=== PATIENT | female | born 1965 | race Caucasian/White ===

== ENCOUNTER → 2017-04-26 | Outpatient (CLI) | payer SELFPAY ==
--- NOTE | 2017-04-26 09:52 | Diagnostic Imaging Report ---
PROCEDURE: US Abdomen, limited. TECHNIQUE: Multiple realtime grayscale images were obtained over the abdomen in various projections. INDICATION: Palpable abnormality in the left anterior abdominal wall. COMPARISON: None available. FINDINGS: In the area of palpable concern, there appears to be a defect in the left rectus abdominis muscle with peritoneal contents herniating through the defect. This defect measures approximately 2 cm in diameter. It is difficult to ascertain if this is simply peritoneal fat versus bowel loops. IMPRESSION: There is likely a paramedian ventral hernia in the left lower quadrant. CT of the abdomen and pelvis without contrast is advised for better characterization of the contents. Dictated by: Dictated on workstation # [id number]
== END ==
LOC: RAD 07:10
PROVIDERS: ATTEND Nurse Practitioner Family
DX: K43.9 Ventral hernia without obstruction or gangrene (principal)
CPT/HCPCS: 76705

== ENCOUNTER → 2017-05-03 | Outpatient (CLI) | payer SELFPAY ==
--- NOTE | 2017-05-03 11:59 | Diagnostic Imaging Report ---
PROCEDURE: CT abdomen and pelvis without contrast. TECHNIQUE: Multiple contiguous axial images were obtained through the abdomen and pelvis without the use of intravenous contrast. INDICATION: Abdominal distention. COMPARISON: None. FINDINGS: Included portions of the lung bases are unremarkable. CT abdomen: There is a large heterogeneous mass extending from the pelvis into the abdomen. It measures approximately 16 x 11 cm in maximal axial dimension x approximately 18.6 cm in length. Note is made of prominent partially calcified mural component on the left. As a result, there is mass effect with displacement of the intra-abdominal organs. There is no evidence of underlying bowel obstruction. Normal appendix is identified. The kidneys, adrenal glands, spleen, and pancreas have an unremarkable noncontrast CT appearance. The liver has a somewhat slightly diffusely hypodense appearance suggestive of underlying hepatic steatosis. No focal hepatic mass-type lesions are seen on this noncontrast exam. There is no loculated fluid collection, free fluid, nor free air within the abdomen. No abnormal mesenteric or retroperitoneal adenopathy is seen. There is mild calcified aortic atherosclerosis. Fat-containing left paramedian ventral hernia is seen just inferior to the level of the umbilicus. Ostia measures approximately 2 cm in diameter. Bony structures show no acute abnormalities. CT pelvis: Urinary bladder is unopacified. No calculi are seen within the urinary bladder. Again, there is a large heterogeneous mass extending from the pelvis into the abdomen. There is no loculated fluid collection, free fluid, nor free air within the pelvis. No abnormal lymph nodes are identified. Bony structures show no acute abnormalities. IMPRESSION: 1. Large mass extending from the pelvis into the lower abdomen. Ovarian origin is favored. Given the bulky calcifications, findings could be on the basis of large dermoid. Surgical consultation recommended. 2. Fat-containing periumbilical hernia. 3. Probable hepatic steatosis. Dictated by: Dictated on workstation # [id number]
== END ==
LOC: RAD 11:00
PROVIDERS: ATTEND Nurse Practitioner Family
DX: K42.9 Umbilical hernia without obstruction or gangrene (principal); K43.9 Ventral hernia without obstruction or gangrene; R19.09 Other intra-abdominal and pelvic swelling, mass and lump
CPT/HCPCS: 74176

== ENCOUNTER 2017-05-25 05:47 | Outpatient (CLI) | payer SELFPAY ==
[~2017-05-25] VITALS: Ht 157.5 cm; Wt 55.0 kg
[2017-05-25] MEDS ORDERED: TELM1TAB2 PO (13:39)
== END 2017-05-25 14:54 ==
LOC: PREOP 05:47
PROVIDERS: ATTEND Obstetrics & Gynecology
DX: Z01.818 Encounter for other preprocedural examination (principal); R19.09 Other intra-abdominal and pelvic swelling, mass and lump; K43.9 Ventral hernia without obstruction or gangrene

== ENCOUNTER → 2017-05-25 | Outpatient (CLI) | payer OTHER ==
[~2017-05-25] MED LIST: TELM1TAB2 PO
--- NOTE | 2017-05-25 18:27 | Diagnostic Imaging Report ---
INDICATION: Abnormal CT imaging obtained for abdominal distention demonstrating a large pelvic mass. TECHNIQUE: Multiple real-time grayscale sonographic images were obtained of the pelvis transabdominally and transvaginally. CORRELATION STUDY: CT 05/03/2017. FINDINGS: UTERUS/ENDOMETRIUM: Uterus measures 6.0 x 4.2 x 2.5 cm. Endometrial thickness is thickened for a postmenopausal patient at 9 mm. Somewhat heterogeneous appearance about the thickened endometrium. RIGHT OVARY: 1.3 x 1.3 x 2.1 cm, generally unremarkable. LEFT OVARY: Definitive left ovary not visualized.. There is a large complex mass in the midline of the pelvis extending to left of midline. This measures approximately 23 x 13 x 18 cm. No detectable color flow within the more solid component. No significant free pelvic fluid. IMPRESSION: 1. Abnormally thickened endometrium for a postmenopausal patient does raise concern for potential endometrial malignancy. 2. Large 23 cm complex mass again demonstrated within the pelvis. Though somewhat indeterminate, it favors ovarian etiology concerning for potential cystadenocarcinoma or given the calcification could be reflective of a large dermoid type tumor. Dictated by: Dictated on workstation # [id number]
== END ==
LOC: RAD 10:11
PROVIDERS: ATTEND Obstetrics & Gynecology
DX: N85.8 Other specified noninflammatory disorders of uterus (principal); Z32.01 Encounter for pregnancy test, result positive
CPT/HCPCS: 36415; 76830; 76856; 84702

== ENCOUNTER 2017-05-27 08:51 | Inpatient (IN) | payer OTHER ==
[~2017-05-27] VITALS: Ht 157.5 cm; Wt 55.0 kg
--- OUTSIDE RECORDS SUMMARY | 2017-05-27 08:57 | XMS REPORT ---
Author Author GEORGE MELGAR [facility] Address [address] [place] [address] Care Team Providers Care Medical Tech Name Role Phone GEORGE MELGAR Unavailable PROBLEMS Type Condition ICD9-CM Code GGS52-DR Code Onset Dates Condition Status SNOMED Code Problem Colon cancer screening Z12.11 Active 474503081 Problem Breast cancer screening Z12.39 Active 513709522 Problem Gynecologic exam normal Z01.419 Active 932354774 Problem Essential hypertension I10 Active 66322301 ALLERGIES No Information SOCIAL HISTORY Never Assessed PLAN OF CARE VITAL SIGNS MEDICATIONS Unknown Medications RESULTS No Results PROCEDURES No Known procedures IMMUNIZATIONS No Known Immunizations MEDICAL (GENERAL) HISTORY Type Description Date Medical History hypertension Surgical History tubal ligation Hospitalization History childbirth only
--- OUTSIDE RECORDS SUMMARY | 2017-05-27 08:58 | XMS REPORT ---
Author Author GEORGE MELGAR [facility] Address [address] [place] [address] Care Team Providers Care Commercial Manager Name Role Phone GEORGE MELGAR Unavailable PROBLEMS Type Condition ICD9-CM Code ZPI36-LY Code Onset Dates Condition Status SNOMED Code Problem Colon cancer screening Z12.11 Active 268121558 Problem Breast cancer screening Z12.39 Active 696868844 Problem Gynecologic exam normal Z01.419 Active 380149417 Problem Essential hypertension I10 Active 00237984 ALLERGIES No Information SOCIAL HISTORY Never Assessed PLAN OF CARE VITAL SIGNS MEDICATIONS Medication Instructions Dosage Frequency Start Date End Date Duration Status Micardis HCT 40-12.5 mg Orally Once a day 1 tablet 24h 0 days Active RESULTS No Results PROCEDURES No Known procedures IMMUNIZATIONS No Known Immunizations MEDICAL (GENERAL) HISTORY Type Description Date Medical History hypertension Surgical History tubal ligation Hospitalization History childbirth only
--- OUTSIDE RECORDS SUMMARY | 2017-05-27 08:58 | XMS REPORT ---
Author Author GEORGE MELGAR [facility] Address [address] [place] [address] Care Team Providers Care Edging Machine Setter Name Role Phone GEORGE MELGAR Unavailable PROBLEMS Type Condition ICD9-CM Code DET16-BK Code Onset Dates Condition Status SNOMED Code Problem Colon cancer screening Z12.11 Active 554411798 Problem Breast cancer screening Z12.39 Active 160055871 Problem Gynecologic exam normal Z01.419 Active 617892532 Problem Essential hypertension I10 Active 65764766 ALLERGIES No Information SOCIAL HISTORY Never Assessed PLAN OF CARE VITAL SIGNS MEDICATIONS Unknown Medications RESULTS No Results PROCEDURES No Known procedures IMMUNIZATIONS No Known Immunizations MEDICAL (GENERAL) HISTORY Type Description Date Medical History hypertension Surgical History tubal ligation Hospitalization History childbirth only
--- OUTSIDE RECORDS SUMMARY | 2017-05-27 08:58 | XMS REPORT ---
Author Author KINJAL BRUNER [facility] Address [address] [place] [address] Care Team Providers Care Flatbed Truck Driver Name Role Phone KINJAL BRUNER Unavailable PROBLEMS Type Condition ICD9-CM Code FRG29-WW Code Onset Dates Condition Status SNOMED Code Problem Colon cancer screening Z12.11 Active 230404786 Problem Breast cancer screening Z12.39 Active 476405358 Problem Gynecologic exam normal Z01.419 Active 479002732 Problem Essential hypertension I10 Active 47759301 ALLERGIES Unknown Allergies SOCIAL HISTORY No smoking Hx information available PLAN OF CARE VITAL SIGNS MEDICATIONS Unknown Medications RESULTS No Results PROCEDURES Procedure Date Ordered Related Diagnosis Body Site FLUARIX QUAD P-FREE 3 AND UP .50 2015Apr 13, 2016 SINGLE IMMUNIZATION ADMIN Apr 13, 2016 IMMUNIZATIONS Vaccine Route Administration Date Status FLUARIX QUAD P-FREE 3 AND UP .50 2015 IM Intramuscular Apr 13, 2016 Administered
--- OUTSIDE RECORDS SUMMARY | 2017-05-27 08:58 | XMS REPORT ---
Author Author GEORGE MELGAR [facility] Address [address] [place] [address] Care Team Providers Care Pearler Name Role Phone GEORGE MELGAR Unavailable PROBLEMS Type Condition ICD9-CM Code TIE01-RE Code Onset Dates Condition Status SNOMED Code Problem Colon cancer screening Z12.11 Active 065172673 Problem Breast cancer screening Z12.39 Active 706851212 Problem Gynecologic exam normal Z01.419 Active 711531824 Problem Essential hypertension I10 Active 84011310 ALLERGIES No Information SOCIAL HISTORY Never Assessed PLAN OF CARE VITAL SIGNS MEDICATIONS Unknown Medications RESULTS No Results PROCEDURES No Known procedures IMMUNIZATIONS No Known Immunizations MEDICAL (GENERAL) HISTORY Type Description Date Medical History hypertension Surgical History tubal ligation Hospitalization History childbirth only
--- OUTSIDE RECORDS SUMMARY | 2017-05-27 08:58 | XMS REPORT ---
Author Author MART PALACIOS [facility] Address Unknown Phone Unavailable Care Team Providers Care Velocity Shooter Name Role Phone MART PALACIOS CP Unavailable Allergies No Known Allergies Problems Problem Type Condition Code Onset Dates Condition Status Assessment Encounter for other administrative examinations Z02.89 Active Problem Essential hypertension I10 Active Medications No Known Medications Procedures Procedure Coding System Code Date Dental Prepay for Future Services CPT-4 DTPRP June 05, 2015 Results No Known Results Summary Purpose eClinicalWorks Submission
[2017-05-27] MEDS ORDERED: LACTATED RINGERS 1,000 ML IV PRN (09:05)
[2017-05-27] MEDS ORDERED: metroNIDAZOLE 500MG/100ML IVPB 100 ML IV ONE (09:15)
[2017-05-27] MEDS ORDERED: ceFAZolin INJECTION 1,000 MG in NS (IVPB) 100 ML IV ONE (09:15)
[2017-05-27 09:28] VITALS: BP 135/93
[2017-05-27 09:39] LABS: BASOPHILS # (AUTO) 0.1 10^3/uL (0.0-0.1); BASOPHILS % (AUTO) 1 % (0-10); EOSINOPHILS # (AUTO) 0.1 10^3/uL (0.0-0.3); EOSINOPHILS % (AUTO) 1 % (0-10); HEMATOCRIT 52 % (35-52); HEMOGLOBIN 18.6 G/DL (11.5-16.0); LYMPHOCYTES # (AUTO) 2.5 X 10^3 (1.0-4.0); LYMPHOCYTES % (AUTO) 26 % (12-44); MEAN CORPUSCULAR HEMOGLOBIN 35 PG (25-34); MEAN CORPUSCULAR HGB CONC 36 G/DL (32-36); MEAN CORPUSCULAR VOLUME 96 FL (80-99); MEAN PLATELET VOLUME 9.6 FL (7.4-10.4); MONOCYTES # (AUTO) 0.8 X 10^3 (0.0-1.0); MONOCYTES % (AUTO) 8 % (0-12); NEUTROPHILS # (AUTO) 6.3 X 10^3 (1.8-7.8); NEUTROPHILS % (AUTO) 65 % (42-75); PLATELET COUNT 294 10^3/uL (130-400); RED BLOOD COUNT 5.39 10^6/uL (4.35-5.85); RED CELL DISTRIBUTION WIDTH 12.7 % (10.0-14.5); WHITE BLOOD COUNT 9.8 10^3/uL (4.3-11.0)
[2017-05-27 09:57] LABS: ALANINE AMINOTRANSFERASE 19 U/L (0-55); ALBUMIN 4.5 GM/DL (3.2-4.5); ALKALINE PHOSPHATASE 154 U/L (40-136); BILIRUBIN,TOTAL 0.6 MG/DL (0.1-1.0); BUN/CREATININE RATIO 16; CALCIUM 9.5 MG/DL (8.5-10.1); CARBON DIOXIDE 23 MMOL/L (21-32); CHLORIDE 100 MMOL/L (98-107); GFR ESTIMATED > 60; GLUCOSE 79 MG/DL (70-105); POTASSIUM 3.7 MMOL/L (3.6-5.0); SODIUM 135 MMOL/L (135-145)
--- NOTE | 2017-05-27 10:32 | Progress Note-Pre Operative ---
Pre-Operative Progress Note H&P Reviewed The H&P was reviewed, patient examined and no changes noted. Date Seen by Provider: May 27, 2017 Time Seen by Provider: 10:15 Date H&P Reviewed: May 27, 2017 Time H&P Reviewed: 10:15 Pre-Operative Diagnosis: Pelvic Mass, Ventral Hernia APRIL PASCUAL DO May 27, 2017 10:32 am
[2017-05-27] MEDS ORDERED: SEVOFLURANE (ULTANE) 15 ML INHAL SOLN ONE (10:34)
[2017-05-27] MEDS ORDERED: fentaNYL INJECTION 250 MCG/5 ML AMP ONE (10:34)
[2017-05-27] MEDS ORDERED: proPOfol 200 MG/20 ML (DIPRIVAN) VIAL IV ONE (10:34)
[2017-05-27] MEDS ORDERED: LIDOCAINE PF 2% 5 ML (XYLOCAINE) VIAL ONE (10:34)
[2017-05-27] MEDS ORDERED: DEXAMETHASONE 10 MG/ML (DECADRON) 1 ML VIAL ONE (10:34)
[2017-05-27] MEDS ORDERED: ROCURONIUM 10 MG/ML 5 ML SYRINGE IV ONE (10:34)
[2017-05-27] MEDS ORDERED: MIDAZOLAM 2 MG/2 ML (VERSED) VIAL ONE (10:34)
[2017-05-27] MEDS ORDERED: HYDROmorphone PF INJECTION 20 MG in NS (IVPB) 100 ML IV PRN (10:45)
[2017-05-27] MEDS ORDERED: ONDANSETRON 4 MG/2 ML (SDV) Z0FRAN IVP PRN ×2 (10:45→12:30)
[2017-05-27] MEDS ORDERED: NEOSTIGMINE 1 MG/ML 5 ML SYRINGE ONE (12:00)
[2017-05-27] MEDS ORDERED: GLYCOPYRROLATE 0.2 MG/ML (ROBINUL) 2 ML VIAL ONE (12:00)
[2017-05-27] MEDS ORDERED: HYDROmorphone (DILAUDID) 2 MG/ML VIAL ONE (12:21)
[2017-05-27] MEDS ORDERED: morphine INJ 10 MG/ML 1ML (SYR OR VIAL) ONE (12:22)
[2017-05-27] MEDS ORDERED: morphine INJ 10 MG/ML 1ML (SYR OR VIAL) IVP PRN (12:30)
[2017-05-27] MEDS: HYDROmorphone (DILAUDID) 2 MG/ML VIAL IVP PRN ×2 (12:44→13:08)
[2017-05-27] MEDS ORDERED: LABETALOL HCL 20 MG/4 ML VIAL ONE (12:51)
[2017-05-27] MEDS ORDERED: LABETALOL HCL 20 MG/4 ML VIAL IV ONE (13:00)
[2017-05-27] MEDS: KETOROLAC 30 MG/ML VIAL IVP PRN ×2 (13:04→19:37)
[2017-05-27 13:50] VITALS: BP 175/115
[2017-05-27] MEDS: D5 LR IV SOLUTION 1,000 ML IV SCH ×2 (13:50→22:34)
--- NOTE | 2017-05-27 14:16 | Anesthesia-General Post-Op ---
General Patient Condition Mental Status/LOC: Same as Preop Cardiovascular: Satisfactory Nausea/Vomiting: Absent Respiratory: Satisfactory Pain: Controlled Complications: Absent Post Op Complications Complications None Follow Up Care/Instructions Patient Instructions None needed. Anesthesia/Patient Condition Patient Condition Patient is doing well, no complaints, stable vital signs, no apparent adverse anesthesia problems. No complications reported per nursing. KAYLIE DANIEL CRNA May 27, 2017 14:16
[2017-05-27] MEDS ORDERED: hydrALAZINE (APESOLINE) 20 MG/ML VIAL IV PRN (14:45)
[2017-05-27] MEDS ORDERED: PATIENT MAY USE OWN MEDS, ALL MC SCH (14:45)
[2017-05-27] MEDS: HYDROCHLOROTHIAZIDE PO SCH (15:13)
[2017-05-27] MEDS: TELMISARTAN PO SCH (15:13)
[2017-05-27 15:41] VITALS: BP 157/106
--- NOTE | 2017-05-27 18:29 | OPERATIVE REPORT ---
DATE OF SERVICE: PREOPERATIVE DIAGNOSES: 1. A 51-year-old female with pelvic mass. 2. Abdominal ventral hernia. POSTOPERATIVE DIAGNOSES: 1. A 51-year-old female with pelvic mass. 2. Abdominal ventral hernia. PROCEDURES: 1. Exploratory laparotomy with removal of left ovarian mass. 2. Total abdominal hysterectomy with bilateral salpingo-oophorectomy. 3. Incarcerated ventral hernia repair performed by Dr. Lopez. SURGEON: Sanchez Pascual DO [employer]-SURGEON: Rivera Lopez DO ANESTHESIA: General endotracheal. ESTIMATED BLOOD LOSS: 150 mL. URINE OUTPUT: 200 mL, clear at the end of the procedure. FLUIDS: 1700 mL of lactated Ringer's solution. FINDINGS: An enlarged pelvic mass about the size of a volleyball, grossly normal-appearing uterus and right ovary and an incarcerated ventral hernia. SPECIMENS SENT: Left ovarian pelvic mass, uterus, bilateral fallopian tubes and right ovary. INDICATION FOR PROCEDURE: This 51-year-old female came into my office as a consultation from the [facility] with an obvious large pelvic mass making the patient look as though she was approximately 20 to 25 weeks . Upon review of her records, she did have a CT revealing an in largest diameter 12 to 14 cm pelvic mass with unsure etiology of left or right adnexa. Followup ultrasound was ordered which revealed the same with some cystic and solid components noted within it. Tumor markers were found to be negative. There is no lymphadenopathy on CT. No free fluid in the pelvis. I discussed with the patient the possibility for malignancy and possible staging needed; however, at this point, there were no signs of malignancy. We decided to proceed with this case here without staging. I also consulted Dr. Lopez to come in and repair this hernia that was periumbilical from previous surgery. Risks of the procedure were discussed with the patient in detail including risks of bleeding, infection, damage to any surrounding structures including, but not limited to bowel, bladder, ureter, kidneys, risks of damaging any other structures and subsequent surgeries were discussed with the patient, postoperative thromboembolic events, postoperative hematoma formation and even . After everything was discussed with the patient in detail, consent was obtained and the patient was taken to the operating room. OPERATIVE REPORT IN DETAIL: Once in the operating room, general anesthesia was found to be adequate. She was placed in dorsal lithotomy position, prepped and draped in normal sterile fashion. Fried catheter was placed using sterile technique and a timeout was performed. I then placed a weighted speculum into the patient's vagina. A right angle retractor was used to visualize the cervix. It was grasped at 12 o'clock position using a single tooth tenaculum. An 0 Vicryl suture was then placed for retraction. The single tooth tenaculum was then removed. I then placed a Lena uterine manipulator with a 6 cm tip and a 3 cm colpotomy ring into the endometrial canal deploying the balloon in the endometrium and advancing the colpotomy ring around the vaginal fornix. Once this was in place, I was able to perform a change of gloves and took my attention to the abdomen where I made a midline incision from the left of the umbilicus down to the suprapubic bone. I then took this incision to the fascia using Bovie cautery and I was able to separate the rectus muscles at midline, exposed the peritoneum which I entered bluntly and extended with blunt traction. I then placed an Santiago ring retractor into the pelvis, which allowed me to easily deliver this large pelvic mass. At the vascular pedicle, I took LigaSure across this portion of the tumor and cauterized and transected using the LigaSure and it was sent as a separate left ovarian pelvic mass. The hysterectomy was then performed by starting at the right infundibulopelvic ligament. I bipolar cauterized and transected this using the LigaSure. I took this down to the level of the lower uterine segment, at which point I the anterior and posterior leaflets of the broad ligament. The anterior leaflet was taken around the anterior vaginal fornix and posterior leaflet was taken around the posterior vaginal fornix. On the left side from the previous removal of the pelvic mass, I took this both anteriorly and posteriorly as well with these reflections of the broad ligament and I was able to skeletonize the uterine vessels laterally, which were bipolar cauterized bilaterally and transected using the LigaSure. I then performed my colpotomy at 12 o'clock position and able to easily palpate the Lena colpotomy ring and took this circumferentially around the vaginal fornix amputating the specimen and then removing the uterus and right tube and ovary sent as a separate specimen. The vaginal cuff was then closed using 0 Vicryl suture in a [id number] fashion interrupted across the vaginal cuff, after which there was no active bleeding noted from any of my dissection planes. I copiously irrigated the pelvis using normal saline. Once again, no active bleeding was noted from any of my dissection planes. The case was then turned over to Dr. Lopez, who was able to remove the hernia and able to align the fascia for closure. We then proceeded with closing the fascia in one layer using #1 looped PDS in running fashion. Once this was done, we reapproximated the skin using gabriela. Lap and sponge counts were correct at the end of the procedure. Instrument counts were correct as well. Fried catheter was left in place. The patient tolerated the procedure well and was sent to recovery area in stable condition. Ancef 2 g and 500 mg of Flagyl were given preoperatively for infection prophylaxis. Job ID: [id number] DocumentID: [id number] Dictated Date: 05/27/2017 13:36:07 Junior Java Developer Date: 05/27/2017 18:29:16 Dictated By: SANCHEZ PASCUAL DO
[2017-05-27 18:33] VITALS: BP 142/96
[2017-05-27 22:15] VITALS: BP 137/92
[2017-05-28] VITALS (7 sets, daily range): BP systolic 135–153; BP diastolic 90–96
[2017-05-28] MEDS: IBUPROFEN 600 MG (MOTRIN) TAB PO SCH (01:12)
[2017-05-28] MEDS: D5 LR IV SOLUTION 1,000 ML IV SCH ×2 (02:32→08:10)
--- NOTE | 2017-05-28 06:41 | OPERATIVE REPORT ---
DATE OF SERVICE: 05/27/2017 PREOPERATIVE DIAGNOSIS: Pelvic mass, abdominal incisional incarceration hernia. POSTOPERATIVE DIAGNOSIS: Pelvic mass, abdominal incisional incarceration hernia. PROCEDURES: Incarcerated ventral hernia repair and I assisted with exploratory laparotomy with removal of left ovarian mass, total abdominal hysterectomy with bilateral salpingo-oophorectomy performed by Dr. Arango. SURGEONS: 1. Eloise Lopez DO 2. Sanchez Arango MD ANESTHESIA: General. ESTIMATED BLOOD LOSS: 150 mL. COMPLICATIONS: None. INDICATIONS: The patient is a 51-year-old female who has had hernias and is having a tubal ligation for about 12 to 13 years. She also has a large pelvic mass. She has been explained the risks and benefits of procedure and wished to proceed with the procedure. Consent was on chart. DESCRIPTION OF PROCEDURE: The patient was positioned in lithotomy position, prepped and draped in a sterile fashion. A midline incision was made and the hernia contents were encountered. This was omental fat that was incarcerated through hernia. The hernia defect was opened through the incision and the abdomen was then entered. All the contents were reduced. At this point, Dr. Arango performed removal of the left ovarian mass and a total abdominal hysterectomy with bilateral salpingo-oophorectomy. Hernia sac that was just inferior to the umbilicus was removed. The fascia was mobilized and the fascia was then closed with 1-0 looped PDS. There is a small laxity in the fascia, therefore, 0 Vicryl suture was placed to help reinforce this area. The fascia was then closed remainder of the way. The skin was then mobilized and the skin was then reapproximated with gabriela. The patient tolerated the procedure well. She is in recovery room in stable condition. The patient understands this was a primary repair and does have higher risk of recurrence. Job ID: [id number] DocumentID: [id number] Dictated Date: 05/27/2017 21:21:07 Division Human Resources Manager Date: 05/27/2017 23:00:01 Dictated By: ELOISE LOPEZ DO
[2017-05-28] MEDS: KETOROLAC 30 MG/ML VIAL IVP PRN ×3 (06:53→20:28)
--- NOTE | 2017-05-28 09:11 | Progress Note ---
Subjective Date Seen by Provider: May 28, 2017 Time Seen by Provider: 09:06 Subjective/Events-last exam Had some nausea and emesis last night, currently better. Using incentive spirometer. Pain controlled. Denies n/v fever sweats chills shortness of breath or chest pain. Objective Exam Vital Signs Date Time Temp Pulse Resp B/P (MAP) Pulse Ox O2 Delivery O2 Flow Rate FiO2 05/28/17 08:04 98.5 97 18 149/96 (113) 95 Room Air 05/28/17 06:51 18 05/28/17 03:59 97.9 99 18 142/90 (107) 93 Room Air 05/28/17 01:12 97.0 108 18 153/96 (115) 92 Room Air 05/27/17 22:15 97.0 99 18 137/92 (107) 91 Room Air 05/27/17 19:30 91 Room Air 05/27/17 19:00 18 05/27/17 19:00 18 05/27/17 18:33 97.6 105 18 142/96 (111) 93 Nasal Cannula 2.00 05/27/17 16:06 Nasal Cannula 2.00 05/27/17 15:41 96.9 69 18 157/106 (123) 96 Nasal Cannula 2.00 05/27/17 15:15 20 05/27/17 13:50 96.9 67 20 175/115 (135) 98 Nasal Cannula 2.00 05/27/17 09:28 97.8 104 16 135/93 (107) 99 Room Air I & O 05/28/17 07:00 Intake Total 3240 ml Output Total 1400 ml Balance 1840 ml Capillary Refill : General Appearance: No Apparent Distress HEENT: PERRL/EOMI Neck: Normal Inspection Respiratory: No Accessory Muscle Use, No Respiratory Distress Cardiovascular: Regular Rate, Rhythm Gastrointestinal: soft (incisional tenderness, no signs of infection) Extremity: Normal Inspection, Normal Range of Motion Neurologic/Psychiatric: Alert, Oriented x3, No Motor/Sensory Deficits, social work administrator II- XII Norm as Tested Skin: Warm/Dry Lymphatic: No Adenopathy Results Lab Laboratory Tests 05/27/17 09:16: White Blood Count 9.8, Red Blood Count 5.39, Hemoglobin 18.6H, Hematocrit 52, Mean Corpuscular Volume 96, Mean Corpuscular Hemoglobin 35H, Mean Corpuscular Hemoglobin Concent 36, Red Cell Distribution Width 12.7, Platelet Count 294, Mean Platelet Volume 9.6, Neutrophils (%) (Auto) 65, Lymphocytes (%) (Auto) 26, Monocytes (%) (Auto) 8, Eosinophils (%) (Auto) 1, Basophils (%) (Auto) 1, Neutrophils # (Auto) 6.3, Lymphocytes # (Auto) 2.5, Monocytes # (Auto) 0.8, Eosinophils # (Auto) 0.1, Basophils # (Auto) 0.1, Sodium Level 135, Potassium Level 3.7, Chloride Level 100, Carbon Dioxide Level 23, Anion Gap 12, Blood Urea Nitrogen 13, Creatinine 0.80, Estimat Glomerular Filtration Rate > 60, BUN/ Creatinine Ratio 16, Glucose Level 79, Calcium Level 9.5, Total Bilirubin 0.6, Aspartate Amino Transf (AST/SGOT) 25, Alanine Aminotransferase (ALT/SGPT) 19, Alkaline Phosphatase 154H, Total Protein 8.0, Albumin 4.5 Assessment/Plan Assessment/Plan Assessment/Plan s/p total hysterectomy b/l salpingo-oophorectomy and primary repair incarcerated incisional hernia pain control diet as tolerates incentive spirometry ambulate ELOISE BECERRIL DO May 28, 2017 09:11
--- NOTE | 2017-05-28 09:32 | Progress Note-Standard ---
Standard Progress Note Progress Notes/Assess & Plan Date Seen by Provider: May 28, 2017 Time Seen by Provider: 09:29 Progress/Assessment & Plan Patient doing well other than nausea and vomitting x 2 this AM. Reports that her pain is well controlled and has minimally used the STATISTICAL ANALYST pump. Denies flatus. Fried still in place. Vital Sign - Last 24 Hours 05/27/17 05/27/17 05/27/17 05/27/17 13:50 15:15 15:41 16:06 Temp 96.9 96.9 Pulse 67 69 Resp 20 20 18 B/P (MAP) 175/115 (135) 157/106 (123) Pulse Ox 98 96 O2 Delivery Nasal Cannula Nasal Cannula Nasal Cannula O2 Flow Rate 2.00 2.00 2.00 05/27/17 05/27/17 05/27/17 05/27/17 18:33 19:00 19:00 19:30 Temp 97.6 Pulse 105 Resp B/P (MAP) 142/96 (111) Pulse Ox 93 91 O2 Delivery Nasal Cannula Room Air O2 Flow Rate 2.00 05/27/17 05/28/17 05/28/17 05/28/17 22:15 01:12 03:59 06:51 Temp 97.0 97.0 97.9 Pulse 99 108 99 Resp 18 B/P (MAP) 137/92 (107) 153/96 (115) 142/90 (107) Pulse Ox 91 92 93 O2 Delivery Room Air Room Air Room Air 05/28/17 08:04 Temp 98.5 Pulse 97 Resp 18 B/P (MAP) 149/96 (113) Pulse Ox 95 O2 Delivery Room Air Intake and Output 05/27/17 05/27/17 05/28/17 15:00 23:00 07:00 Intake Total 1200 ml 1640 ml 400 ml Output Total 200 ml 200 ml 1000 ml Balance 1000 ml 1440 ml -600 ml Incision: c/d/i, gabriela in place, dressing replaced with dry ABD. Abd: soft/ mildly tender/ non distended Diagnosis: POD 1 Ex Lap with Removal Left ovarian mass CARLIN w/ BSO Ventral hernia repair P: Reglan and Pepcid started this am Fried to be dc'ed Continue STATISTICAL ANALYST until tolerating orals then convert to orals hopefully later today Encourage ambulation APRIL PASCUAL DO May 28, 2017 09:32
[2017-05-28] MEDS: FAMOTIDINE 20MG/2ML IV (PEPCID) IVP SCH ×2 (09:34→20:29)
[2017-05-28 10:27] LABS: BASOPHILS % (AUTO) 0 % (0-10); EOSINOPHILS % (AUTO) 0 % (0-10); HEMATOCRIT 42 % (35-52); HEMOGLOBIN 14.7 G/DL (11.5-16.0); LYMPHOCYTES # (AUTO) 3.1 X 10^3 (1.0-4.0); LYMPHOCYTES % (AUTO) 22 % (12-44); MEAN CORPUSCULAR HEMOGLOBIN 34 PG (25-34); MEAN CORPUSCULAR HGB CONC 35 G/DL (32-36); MEAN CORPUSCULAR VOLUME 97 FL (80-99); MEAN PLATELET VOLUME 9.9 FL (7.4-10.4); MONOCYTES % (AUTO) 7 % (0-12); NEUTROPHILS # (AUTO) 10.1 X 10^3 (1.8-7.8); NEUTROPHILS % (AUTO) 71 % (42-75); PLATELET COUNT 256 10^3/uL (130-400); RED BLOOD COUNT 4.34 10^6/uL (4.35-5.85); RED CELL DISTRIBUTION WIDTH 12.2 % (10.0-14.5); WHITE BLOOD COUNT 14.2 10^3/uL (4.3-11.0)
[2017-05-28 10:58] LABS: LYMPHOCYTES % (MANUAL) 18 %; MONOCYTES % (MANUAL) 5 %; NEUTROPHILS % (MANUAL) 72 %; RBC MORPH NORMAL; REACTIVE LYMPHOCYTES 5 %
[2017-05-28] MEDS: TELMISARTAN PO SCH (11:02)
[2017-05-28] MEDS: HYDROCHLOROTHIAZIDE PO SCH (11:02)
[2017-05-28] MEDS: METOCLOPRAMIDE INJ 10 MG/2 ML (REGLAN) IVP SCH ×3 (11:53→23:50)
[2017-05-28] MEDS: DOCUSATE SODIUM 100 MG (COLACE) CAP PO SCH ×2 (11:53→20:35)
[2017-05-28] MEDS: HYDROcodone/APAP 5 MG/325 MG (LORTAB) TAB PO PRN ×2 (17:19→23:50)
[2017-05-29] MEDS: KETOROLAC 30 MG/ML VIAL IVP PRN (04:31)
[2017-05-29 04:58] VITALS: BP 139/97
[2017-05-29 07:14] LABS: BASOPHILS % (AUTO) 1 % (0-10); EOSINOPHILS # (AUTO) 0.1 10^3/uL (0.0-0.3); EOSINOPHILS % (AUTO) 1 % (0-10); HEMATOCRIT 39 % (35-52); HEMOGLOBIN 13.8 G/DL (11.5-16.0); LYMPHOCYTES # (AUTO) 2.7 X 10^3 (1.0-4.0); LYMPHOCYTES % (AUTO) 33 % (12-44); MEAN CORPUSCULAR HEMOGLOBIN 34 PG (25-34); MEAN CORPUSCULAR HGB CONC 35 G/DL (32-36); MEAN CORPUSCULAR VOLUME 97 FL (80-99); MEAN PLATELET VOLUME 9.8 FL (7.4-10.4); MONOCYTES # (AUTO) 0.5 X 10^3 (0.0-1.0); MONOCYTES % (AUTO) 6 % (0-12); NEUTROPHILS # (AUTO) 4.8 X 10^3 (1.8-7.8); NEUTROPHILS % (AUTO) 60 % (42-75); PLATELET COUNT 251 10^3/uL (130-400); RED BLOOD COUNT 4.06 10^6/uL (4.35-5.85); RED CELL DISTRIBUTION WIDTH 12.3 % (10.0-14.5); WHITE BLOOD COUNT 8.1 10^3/uL (4.3-11.0)
[2017-05-29] MEDS: METOCLOPRAMIDE INJ 10 MG/2 ML (REGLAN) IVP SCH (07:15)
[2017-05-29] MEDS ORDERED: IBUPROFEN 600 MG (MOTRIN) TAB PO ONE (08:21)
[2017-05-29 08:30] VITALS: BP 158/98
[2017-05-29] MEDS: HYDROcodone/APAP 5 MG/325 MG (LORTAB) TAB PO PRN ×2 (08:31→12:07)
[2017-05-29] MEDS: DOCUSATE SODIUM 100 MG (COLACE) CAP PO SCH (08:31)
[2017-05-29] MEDS: FAMOTIDINE 20MG/2ML IV (PEPCID) IVP SCH (08:31)
[2017-05-29] MEDS: TELMISARTAN PO SCH (08:32)
[2017-05-29] MEDS: IBUPROFEN 600 MG (MOTRIN) TAB PO SCH (08:32)
[2017-05-29] MEDS: HYDROCHLOROTHIAZIDE PO SCH (08:32)
[2017-05-29] MEDS ORDERED: DOCU100C37 PO (08:43)
[2017-05-29] MEDS ORDERED: IBUP-1773 PO (08:43)
[2017-05-29] MEDS ORDERED: ACHD5005 PO (08:43)
[2017-05-29] MEDS ORDERED: FAMO40TA72 PO (08:44)
--- NOTE | 2017-05-29 08:45 | Discharge Inst-Women's Service ---
Discharge Inst-Women's Serv Depart Medication/Instructions New, Converted or Re-Newed RX: RX Given to Pt/Family Consults/Follow Up Additional Follow Up: Yes Orders/Referrals Dr. Arango in 7-10 days and in 8 weeks Activity Activity: Activity as Tolerated Driving Instructions: No Driving for 1 Week NO SMOKING: NO SMOKING Nothing Inside Vagina: No Douching, No [place], No Tampons Diet Discharge Diet: No Restrictions Symptoms to Report to : Bleeding Excessive, Pain Increased, Fever Over 101 Degrees F, Vaginal Bleeding Increase, Questions/Concerns For Any Problems or Questions: Contact Your Physician Skin/Wound Care Infection Signs and Symptoms: Increased Redness, Foul Odor of Wound, Increased Drainage, Skin Itchy or Has a Rash, Increased Swelling, Temperature Above 101 F Operative Area Clean and Dry: Keep Incision Clean/Dry Stitches/[place]/Dermabond: Care of Isela Bathing Instructions: APRIL Jason DO May 29, 2017 8:45 am
--- NOTE | 2017-05-29 09:30 | Progress Note-Standard ---
Standard Progress Note Progress Notes/Assess & Plan Date Seen by Provider: May 29, 2017 Time Seen by Provider: 07:45 Progress/Assessment & Plan Patient doing well no further nausea or vomiting, had BM this AM. Reports that her pain is well controlled now on oral pain meds. Ambulating and voiding freely. Vital Sign - Last 24 Hours 05/28/17 05/28/17 05/28/17 05/28/17 11:55 16:00 20:15 20:15 Temp 98.0 98.2 97.4 Pulse 83 79 110 Resp 18 18 18 B/P (MAP) 139/96 (110) 135/90 (105) 147/93 (111) Pulse Ox 95 98 94 94 O2 Delivery Room Air Room Air Room Air Room Air 05/28/17 05/29/17 23:55 04:58 Temp 96.7 98.0 Pulse 108 87 Resp 18 18 B/P (MAP) 142/95 (111) 139/97 (111) Pulse Ox 95 95 O2 Delivery Room Air Room Air Intake and Output 05/28/17 05/28/17 05/29/17 15:00 23:00 07:00 Intake Total 2018.5 ml 400 ml Output Total 1130 ml 600 ml Balance 888.5 ml -200 ml Laboratory Tests Test 05/28/17 10:12 05/29/17 07:01 Range/Units White Blood Count 14.2 H 8.1 4.3-11.0 10^3/uL Red Blood Count 4.34 L 4.06 L 4.35-5.85 10^6/uL Hemoglobin 14.7 # 13.8 11.5-16.0 G/DL Hematocrit 42 39 35-52 % Mean Corpuscular Volume 97 97 80-99 FL Mean Corpuscular Hemoglobin 34 34 25-34 PG Mean Corpuscular Hemoglobin Concent 35 35 32-36 G/DL Red Cell Distribution Width 12.2 12.3 10.0-14.5 % Platelet Count 256 251 130-400 10^3/uL Mean Platelet Volume 9.9 9.8 7.4-10.4 FL Neutrophils (%) (Auto) 71 60 42-75 % Lymphocytes (%) (Auto) 22 33 12-44 % Monocytes (%) (Auto) 7 6 0-12 % Eosinophils (%) (Auto) 0 1 0-10 % Basophils (%) (Auto) 0 1 0-10 % Neutrophils # (Auto) 10.1 H 4.8 1.8-7.8 X 10^3 Lymphocytes # (Auto) 3.1 2.7 1.0-4.0 X 10^3 Monocytes # (Auto) 1.0 0.5 0.0-1.0 X 10^3 Eosinophils # (Auto) 0.0 0.1 0.0-0.3 10^3/uL Basophils # (Auto) 0.0 0.0 0.0-0.1 10^3/uL Neutrophils % (Manual) 72 % Lymphocytes % (Manual) 18 % Monocytes % (Manual) 5 % Reactive Lymphocytes 5 % Blood Morphology Comment NORMAL Incision: c/d/i, gabriela in place, dressing replaced with dry ABD. Abd: soft/ mildly tender/ non distended Diagnosis: POD 2 Ex Lap with Removal Left ovarian mass CARLIN w/ BSO Ventral hernia repair P: PO precautions reviewed Continue to ambulate and go home with IS DC later today. APRIL PASCUAL DO May 29, 2017 9:30 am
[2017-05-29 12:06] VITALS: BP 172/106
== END 2017-05-29 12:45 | disposition home or self-care (01) | DRG 742 ==
LOC: 3RD 08:51 → SURG 08:52 → WS 13:48
PROVIDERS: ADMIT Obstetrics & Gynecology; ATTEND Obstetrics & Gynecology
PROC: 0UT20ZZ Resection of Bilateral Ovaries, Open Approach (ICD-10-PCS; 2017-05-27)
PROC: 0UT70ZZ Resection of Bilateral Fallopian Tubes, Open Approach (ICD-10-PCS; 2017-05-27)
PROC: 0WQF0ZZ Repair Abdominal Wall, Open Approach (ICD-10-PCS; 2017-05-27)
PROC: 0UT90ZZ Resection of Uterus, Open Approach (ICD-10-PCS; principal; 2017-05-27 10:49)
DX: D27.1 Benign neoplasm of left ovary (principal); K43.6 Other and unspecified ventral hernia with obstruction, without gangrene; N83.8 Other noninflammatory disorders of ovary, fallopian tube and broad ligament; N84.0 Polyp of corpus uteri; N72 Inflammatory disease of cervix uteri; I10 Essential (primary) hypertension; F17.210 Nicotine dependence, cigarettes, uncomplicated
CPT/HCPCS: 36415; 80053; 85007; 85025; 85027; 86850; 86900; 86901; 87081; 94664